=== PATIENT | male | born 1955 | race Caucasian/White ===

== ENCOUNTER → 2016-12-20 | Outpatient (CLI) | payer OTHER ==
[~2016-12-20] VITALS: Ht 177.8 cm; Wt 114.8 kg
[~2016-12-20] MED LIST: CHLORHEXIDINE GLUCONATE 2 % 1 PACK (2 CLOTHS) TOPICAL PRN; DICL75TA PO; DORZ2SOL EACH EYE; FENO160T PO; INSULIN HUMAN REGULAR 1,000 UNITS/10 ML VIAL SQ PRN; LACTATED RINGER'S 1000 ML IV PRN; LEVO75TA3 PO; METOPROLOL TARTRATE 25 MG TAB PO PRN; POVIDONE IODINE 5% (ANTISEPSIS KIT) 4 APPLICATIONS EACH NARE PRN; PROPOFOL 200 MG/20 ML AMP IV ONE; SODIUM CHLORID 0.9% 500 ML IV PRN; TRAV0.00 EACH EYE; ZOCO20TA PO
[2016-12-20 13:03] VITALS: BP 147/91; PULSE 68; RESP 18; TEMP 97.7; O2SAT 96
[2016-12-20 15:31] VITALS: TEMP 98.1
[2016-12-20 15:51] VITALS: BP 152/84; PULSE 77; RESP 18; O2SAT 95
--- NOTE | 2016-12-20 23:04 | MR ---
cc: AAMIR BROWN,TEENA Parks MD DATE 12/20/16 PREOPERATIVE DIAGNOSIS Screening colonoscopy. POSTOPERATIVE DIAGNOSIS 1. Colon polyp transverse colon. 2. Edwards diverticulosis. PROCEDURE Total colonoscopy and biopsy and fulguration of colon polyp. ANESTHESIA Monitored anesthesia care. SURGEON Dr. Koch OPERATIVE FINDINGS This patient was seen for screening colonoscopy. At colonoscopy the prep was good to excellent. He did have a little fluid around but I was able to aspirate. He had edwards diverticulosis with a significant amount of diverticulosis in the sigmoid colon without any narrowing. He did have one polyp in the transverse colon that was about 5 mm in size. It was sessile in nature and I biopsied and fulgurated it and destroyed it. No other lesions were identified. OPERATIVE TECHNIQUE The patient was placed on the operating table in left lateral position, given intravenous monitored anesthesia care. The colonoscope was introduced through the anal canal to the rectum, sigmoid colon, descending and transverse colon, ascending colon to the cecum. The ileocecal valve was seen as was the base of the appendix. The scope was sequentially drawn, sequentially look at the mucosa, getting a good look at the mucosa. The polyp was treated as mentioned above. Scope was eventually withdrawn. The patient tolerated the procedure well and left the GI lab in good condition. He should have a repeat colonoscopy in 5 years time if it is an adenoma, otherwise, 10 years. Teena Koch MD JTT/EO /3:31 PM /10:46 PM
--- NOTE | 2016-12-22 10:12 | EKG ---
Date Performed: 12/20/2016 Time Performed: 13:19:22 PTAGE: 61 years EKG: Sinus rhythm MARKED LEFT AXIS DEVIATION ABNORMAL ECG PREVIOUS TRACING : 06/24/2008 11.08 DOCTOR: Xavi Castillo Interpretating Date/Time 12/22/2016 09:54:59
== END ==
LOC: HEND 12:25
PROVIDERS: ATTEND Colon & Rectal Surgery
DX: Z12.11 Encounter for screening for malignant neoplasm of colon (principal); D12.3 Benign neoplasm of transverse colon; K57.90 Diverticulosis of intestine, part unspecified, without perforation or abscess without bleeding; R94.31 Abnormal electrocardiogram [ECG] [EKG]
CPT/HCPCS: 88305; 93005